=== PATIENT | male | born 1970 | race Caucasian/White ===

== ENCOUNTER 2018-06-10 13:18 | Outpatient (RCR) | payer MEDICARE, SELFPAY ==
[2018-06-10 14:04] VITALS: BP 173/81; PULSE 66; RESP 18; TEMP 36.3; BMI 29.0
--- NOTE | 2018-06-10 17:09 | PCM.WC.HP ---
(1) Chronic ulcer of left foot with fat layer exposed Status: Chronic Current Visit: Yes Code(s): L97.522 - Non-pressure chronic ulcer of other part of left foot with fat layer exposed (2) Small vessel disease Status: Chronic Current Visit: Yes Code(s): I99.9 - Unspecified disorder of circulatory system (3) Other specified peripheral vascular diseases Status: Chronic Current Visit: Yes Code(s): I73.89 - Other specified peripheral vascular diseases (4) Hammer toe of left foot Status: Chronic Current Visit: Yes Code(s): M20.42 - Other hammer toe(s) (acquired), left foot (5) Cellulitis of left foot Status: Resolved Current Visit: Yes Code(s): L03.116 - Cellulitis of left lower limb (6) Tobacco user Status: Chronic Current Visit: Yes Code(s): Z72.0 - Tobacco use (7) Left foot pain Status: Chronic Current Visit: Yes Code(s): M79.672 - Pain in left foot (8) Eschar of toe Status: Chronic Current Visit: Yes Code(s): R23.4 - Changes in skin texture History of Present Illness Date of Service: 06/10/18 Chief Complaint: Left fifth toe wound History of Wound: This 47-year-old male presents the wound healing center and was referred by Dr. Neri at the [facility] for nonhealing left fifth toe ulcer. His primary care physician is Dr. Pham. He relates the wound has been present for approximately 2 months. He reports his dog jumped on his toe and the dog's nail scratched into his toe. He has applied Santyl. He already obtain a noninvasive vascular study and was told it was normal. He is terrible pain that wakes him at night. His pain is mildly softened by dangling the leg. He denies odor or redness. He had previous redness and was treated with oral antibiotics. He does have some claudication type symptoms and some rest paresthesias. He denies current fever, chill, nausea, vomiting, loss of appetite. He continues to smoke and has tried to reduce this activity. He wears a surgical shoe as prescribed by his previous daycare director. She is also here today with the family member or friend who has some of [place] diagnostic data on my chart that is viewable on her phone. She will also help gather this information and a principal in CD form for next week. Past Medical History Past Medical History: Chronic Problems Chronic ulcer of left foot with fat layer exposed (Chronic) Small vessel disease (Chronic) Other specified peripheral vascular diseases (Chronic) Hammer toe of left foot (Chronic) Left foot pain (Chronic) Eschar of toe (Chronic) Tobacco user (Chronic) Obesity (Chronic) Past Medical History: Degenerative disc disease in the cervical area, chronic pain, hypertension, hyperlipidemia, hypothyroidism, vertigo, cellulitis. Surgical history: Sinus surgery. Medications were: Reviewed. Allergies: IVP dye. Family history: Cancer prostate. Social history: , current everyday smoker, uses alcohol and drugs per chart review Surgical History: no surgical history Allergies/Adverse Reactions: Allergies No Known Allergies Allergy (Verified 04/07/17 16:14) Home Medications: Ambulatory Orders Medication Instructions Recorded Meclizine HCl 25 mg PO TID 04/07/17 Oxycodone HCl/Acetaminophen 1 tab PO BID PRN PRN 04/07/17 [Oxycodone-Acetaminophen 10-325] morphine SR tablet [Ms Contin] 15 mg PO Q12H PRN 04/07/17 Smoking Status: Current every day smoker Review of Systems Constitutional: Denies: Chills, Fever, Weakness HEENT: Denies: Nasal Congestion Cardiovascular: Reports: Claudication, Edema. Denies: Chest Pain, Chest Pressure Respiratory: Denies: Shortness of Breath Gastrointestinal: Denies: Diarrhea, Nausea, Vomiting Musculoskeletal: Reports: Foot Pain, Joint Tenderness. Denies: Leg Pain Skin: Reports: Skin Changes, Wounds Neurological: Reports: Incoordination, Tingling - Physical Exam Vital Signs Temp Pulse Resp BP 97.3 F L 66 18 173/81 H 06/10/18 14:04 06/10/18 14:04 06/10/18 14:04 06/10/18 14:04 General: Alert, Oriented x3, Cooperative HEENT: Atraumatic Extremities: No Calf Tenderness - Negative Nikos and Love sign bilateral, Diminished Peripheral Pulses - Nonpalpable PT pulses bilateral. Week palpable DP pulses bilateral. Hair is noted to the legs and not to the forefoot. His toes are dysvascular on the left side and he has a capillary refill time of 4 seconds to the fifth toe, over 1 minute to the fourth toe, less than 3 seconds to the left 1, 2, 3 toes., Edema - Mild left foot, - - There is varus rotation the fifth toe and this abuts the fourth toe Skin: Ulcer/ Wound - No purulence, erythema, streaking, odor, acute infection. No interdigital maceration. The medial left fifth toe has an eschar with scant peripheral fibrous tissue noted with no probe to bone. This is very painful to touch. Wound Measurements and Assessment WC - Nurse 1 - General Ulcer Measurement Start: 06/10/18 14:04 Freq: Status: Active Protocol: Activity Type Activity Date Activity User E-Sign Co-Sign Detail Recorded Client Recorded Date Recorded By Document 06/10/18 14:04 [id number] 06/10/18 14:14 06/10/18 14:04 Wound Center Nurse 1 [Ulcer Assessment] #1 LEFT 5TH TOE -Combined with other wound No -Current Size (cm) - Length 1.9 -Current Size (cm) - Width 1.5 -Current Size (cm) - Depth 0.1 -Total Square Cm 2.85 -Date of Last Picture (Recall this 06/10/18 field) -Photo Taken Yes -Epithelialization None Present -Tunneling No -Undermining/Tunneling No -Circular Undermining No -Exudate Amt Medium (34-66%) -Exudate Type Serosanguineous -Wound Margin Distinct, Outline Attached -Granulation Amt None Present (0 %) -Granulation Quality Pale -Slough/Fibrin Yes -Necrosis Amt None Present (0 %) -Necrotic Tissue Type Eschar -Structure Exposed None/Limited to Skin Breakdown -Texture (Batool-wound Skin Appearance) Assessed -Moisture (Batool-wound Skin Appearance Assessed ) Maceration -Color (Batool-wound Skin Appearance) No Abnormality Assessed -Temperature (Batool-wound Skin No Abnormality Appearance) (Pt Warm) -Tenderness on Palpation (Batool-wound Yes Skin Appearance) -Ulcer Cleansing Rinsed/ Irrigated with Saline -Foul Odor after Cleansing No -Anesthetic Used 4% Lidocaine Solution [Edema Assessment] -Lower Limb Edema Present No -Right Calf (cm) 35 -Right Ankle (cm) 21.4 -Left Calf (cm) 34.4 -Left Ankle (cm) 21.3 [id number] - Nurse 2 - General Ulcer CM Notes Start: 06/10/18 14:04 Freq: Status: Active Protocol: Activity Type Activity Date Activity User E-Sign Co-Sign Detail Recorded Client Recorded Date Recorded By Document 06/10/18 14:36 [id number] 06/10/18 14:47 06/10/18 14:36 Wound Center Nurse 2 [Procedure/Treatment] #1 LEFT 5TH TOE -Time 14:38 -Correct Patient Yes -Correct Side, Site, Position Yes -Correct Procedure Yes -Procedure Performed Yes -Post Debridement Size (cm) - Length 1.9 -Post Debridement Size (cm) - Width 1.5 -Post Debridement Size (cm) - Depth 0.1 -Total Square Cm 2.85 -Wound/Ulcer Outcome Not Healed -Ulcer Cleansing Rinsed/ Irrigated with Saline -Foul Odor after Cleansing No -Bioengineered Tissue No -Topical Lidocaine (%) 5 -Bleeding Controlled with Pressure -Treatment Response Procedure Tolerated Well [See Physician Procedure note for Specifics] Pain Scale: 0-10 Numeric [Pain] -Is Patient Pain Free? Yes Musculoskeletal: No Tenderness to Palpation of Joints or Extremities, Muscle Wasting, - - Active range of motion the toes noted bilateral. 5 out of 5 ankle muscle strength all directions bilateral. The compartments remain soft to palpate bilateral lower extremities. Neurological: Sensory exam intact to light touch and pain Psych/Mental Status: Normal Affect, Appropriate Debridement Note Post-Debridement Measurements/Treatment WC - Nurse 2 - General Ulcer CM Notes Start: 06/10/18 14:04 Freq: Status: Active Protocol: Activity Type Activity Date Activity User E-Sign Co-Sign Detail Recorded Client Recorded Date Recorded By Document 06/10/18 14:36 [id number] 06/10/18 14:47 06/10/18 14:36 Wound Center Nurse 2 #1 LEFT 5TH TOE -Time 14:38 -Correct Patient Yes -Correct Side, Site, Position Yes -Correct Procedure Yes -Procedure Performed Yes -Post Debridement Size (cm) - Length 1.9 -Post Debridement Size (cm) - Width 1.5 -Post Debridement Size (cm) - Depth 0.1 -Total Square Cm 2.85 -Wound/Ulcer Outcome Not Healed -Ulcer Cleansing Rinsed/ Irrigated with Saline -Foul Odor after Cleansing No -Bioengineered Tissue No -Topical Lidocaine (%) 5 -Bleeding Controlled with Pressure -Treatment Response Procedure Tolerated Well Pain Scale: 0-10 Numeric Is Patient Pain Free? Yes Wound debrided: fifth toe Laterality: Left No debridement was completed today - There is concern for ischemic changes Assessment/Plan Active Problems Chronic ulcer of left foot with fat layer exposed (Chronic) Small vessel disease (Chronic) Other specified peripheral vascular diseases (Chronic) Hammer toe of left foot (Chronic) Left foot pain (Chronic) Eschar of toe (Chronic) Tobacco user (Chronic) Assessment: Left fifth toe with arterial etiology. Pain. Small vessel disease: Peripheral vascular disease. Current smoker. Malnutrition suspected. Miri Plan: I reviewed and discussed his case today. Debridement was not performed today because I am concerned of his lack of perfusion to the site. I reviewed his noninvasive vascular studies for my chart in an informal manner and it appears that his right ankle-brachial index is 1.19 and left is 1.23. The right digital pressures are 0.81 and on the left at 0.81. I will formally request the paper report from the [facility]. I also recommend a vascular surgery referral with Dr. Bravo to see if any intervention is possible. Smoking cessation was encouraged and he understands he is at risk for limb loss and nonhealing. His foot appears to be dysvascular and there is significant delay of capillary fill time. I recommend he dangle his leg to improve perfusion which does provide some relief. He can also take [id number] Tylenol for needed for pain. He was reassured no signs of infection are noted. His previous culture results are noted and in Dr. Neri's note that was faxed. A full chart review was performed. His foot x-ray with copy of the CD images as well his recent labs were requested from the [facility]. His labs from 05/08/2018 were reviewed with a glucose of 79, creatinine of 1.09, white blood cell count of 10.6 hemoglobin and hematocrit 17.552.8, and platelet of 156. The report from his x-ray were also reviewed from 04/22/2018 the left foot which did not demonstrate acute fracture dislocation. There was mild edema noted. I recommend he change his dressing daily with Santyl and apply a gauze toe spacer to the proximal interdigital area to take pressure off the site. To continue surgical shoe use. A prescription for Hermelindo nutritional supplementation was also provided he was advised on proper use to optimize healing. I answered all his questions. He was advised to return to clinic in 1 week or call sooner if he has any questions.
== END 2018-06-19 23:59 ==
LOC: WC 13:18
PROVIDERS: Family Provider Internal Medicine; PCP Internal Medicine; Visit Provider Podiatrist
DX: I73.89 Other specified peripheral vascular diseases (principal); M20.40 Other hammer toe(s) (acquired), unspecified foot; L97.522 Non-pressure chronic ulcer of other part of left foot with fat layer exposed; M79.672 Pain in left foot; I10 Essential (primary) hypertension; E78.5 Hyperlipidemia, unspecified; F17.200 Nicotine dependence, unspecified, uncomplicated; Z79.899 Other long term (current) drug therapy
CPT/HCPCS: 97602; 99203; 99213; G0463

== ENCOUNTER 2018-07-08 08:06 | Outpatient (RCR) | payer MEDICAID, MEDICARE, SELFPAY ==
[2018-06-20 01:47] VITALS: BP 173/81; PULSE 66; RESP 18; TEMP 36.3
[2018-07-08 10:14] VITALS: BP 162/88; PULSE 76; RESP 18; TEMP 36.3
--- NOTE | 2018-07-08 11:47 | PCM.WC.PN ---
(1) Chronic ulcer of left foot with fat layer exposed Status: Chronic Current Visit: Yes Code(s): L97.522 - Non-pressure chronic ulcer of other part of left foot with fat layer exposed (2) Small vessel disease Status: Chronic Current Visit: Yes Code(s): I99.9 - Unspecified disorder of circulatory system (3) Other specified peripheral vascular diseases Status: Chronic Current Visit: Yes Code(s): I73.89 - Other specified peripheral vascular diseases (4) Hammer toe of left foot Status: Chronic Current Visit: Yes Code(s): M20.42 - Other hammer toe(s) (acquired), left foot (5) Cellulitis of left foot Status: Resolved Current Visit: Yes Code(s): L03.116 - Cellulitis of left lower limb (6) Tobacco user Status: Chronic Current Visit: Yes Code(s): Z72.0 - Tobacco use Type of Wound Date of Service: 07/08/18 Chief Complaint: Left fifth toe wound History of Wound: This 47-year-old male returns to clinic for follow-up of small vessel disease with left fifth toe ulcer. He also has a new ulcer to his left fourth toe. He has applied Santyl and his scab is now gone. He already obtain a noninvasive vascular study and was told it was normal. He is terrible pain that wakes him at night. He tried to dangle relates this does not help. He did not set up a follow-up appointment with vascular surgery as advised. He complains of terrible pain is trying to get into pain management physician by the name of Dr. Martinez. He is not able to tolerate a toe spacer to keep pressure off the ulcer site and he does wear a surgical shoe as advised. He continues to smoke up to 6 cigarettes a day. He is very anxious and talkative. Progress of Wound: Stable - Physical Exam Vital Signs Temp Pulse Resp BP 97.3 F L 76 18 162/88 H 07/08/18 10:14 07/08/18 10:14 07/08/18 10:14 07/08/18 10:14 General: Alert, Oriented x3, Cooperative Extremities: No cyanosis, Capillary Refill Less than 3 Seconds, No Calf Tenderness - negative Nikos and Love left, Diminished Peripheral Pulses, Edema - Mild fifth toe left Skin: Ulcer/ Wound - The wound bed is now fibrous and there is no longer any eschar noted to the medial aspect of the left fifth toe. There is no probe to deep structures. This toe has a cyanotic apparent and has a delayed capillary refill time of less than 6 seconds. The adjacent fourth toe has a delayed capillary refill time of less than 4 seconds and is not as mottled in appearance. There is a new skin discontinuity to the lateral left fourth toe that has a granular and fibrous base. The peripheral skin is hairless and atrophic. There is no purulence streaking erythema or odor Wound Measurements and Assessment WC - Nurse 1 - General Ulcer Measurement Start: 07/08/18 10:09 Freq: Status: Active Protocol: Activity Type Activity Date Activity User E-Sign Co-Sign Detail Recorded Client Recorded Date Recorded By Document 07/08/18 10:14 [email or web address] [id number] 07/08/18 10:33 RB 07/08/18 10:14 Wound Center Nurse 1 [Ulcer Assessment] 2.L 4th toe -Combined with other wound No -Current Size (cm) - Length 1.1 -Current Size (cm) - Width 1.1 -Current Size (cm) - Depth 0.1 -Total Square Cm 1.21 -Photo Taken No -Tunneling No -Undermining/Tunneling No -Circular Undermining No -Classification - Thickness Full Thickness without Exposed Support Structure -Exudate Amt Small (1-33%) -Exudate Type Serosanguineous -Wound Margin Distinct, Outline Attached -Granulation Amt Medium (34-66%) -Granulation Quality [place] -Slough/Fibrin Yes -Necrosis Amt Medium (34-66%) -Necrotic Tissue Type Adherent Slough -Structure Exposed N/A -Texture (Batool-wound Skin Appearance) Assessed -Moisture (Batool-wound Skin Appearance Assessed ) -Color (Batool-wound Skin Appearance) Assessed -Temperature (Batool-wound Skin No Abnormality Appearance) (Pt Warm) -Tenderness on Palpation (Batool-wound No Skin Appearance) -Ulcer Cleansing Rinsed/ Irrigated with Saline -Foul Odor after Cleansing No -Anesthetic Used 4% Lidocaine Solution #1 LEFT 5TH TOE -Combined with other wound No -Current Size (cm) - Length 0.6 -Current Size (cm) - Width 0.6 -Current Size (cm) - Depth 0.1 -Total Square Cm 0.36 -Photo Taken No -Tunneling No -Undermining/Tunneling No -Circular Undermining No -Classification - Thickness Full Thickness without Exposed Support Structure -Exudate Amt Small (1-33%) -Exudate Type Serosanguineous -Wound Margin Distinct, Outline Attached -Granulation Amt Medium (34-66%) -Granulation Quality [place] Red -Slough/Fibrin Yes -Necrosis Amt Medium (34-66%) -Necrotic Tissue Type Adherent Slough -Structure Exposed N/A -Texture (Batool-wound Skin Appearance) Assessed -Moisture (Batool-wound Skin Appearance Assessed ) -Color (Batool-wound Skin Appearance) Assessed -Temperature (Batool-wound Skin No Abnormality Appearance) (Pt Warm) -Tenderness on Palpation (Batool-wound No Skin Appearance) -Ulcer Cleansing Rinsed/ Irrigated with Saline -Foul Odor after Cleansing No -Anesthetic Used 4% Lidocaine Solution [Edema Assessment] -Lower Limb Edema Present Yes -Left Calf (cm) 33.5 -Left Ankle (cm) 21.4 - Nurse 2 - General Ulcer CM Notes Start: 07/08/18 10:09 Freq: Status: Active Protocol: Activity Type Activity Date Activity User E-Sign Co-Sign Detail Recorded Client Recorded Date Recorded By Document 07/08/18 10:52 [id number] 07/08/18 10:53 07/08/18 10:52 Wound Center Nurse 2 [Procedure/Treatment] 2.L 4th toe -Correct Patient No -Correct Side, Site, Position No -Correct Procedure No -Procedure Performed No #1 LEFT 5TH TOE -Correct Patient No -Correct Side, Site, Position No -Correct Procedure No -Procedure Performed No [See Physician Procedure note for Specifics] Pain Scale: 0-10 Numeric [Pain] -Is Patient Pain Free? Yes Musculoskeletal: No Tenderness to Palpation of Joints or Extremities, Muscle Wasting, - - Varus rotation fifth toe abuts fourth toe Neurological: Sensory exam intact to light touch and pain Psych/Mental Status: Normal Affect, Agitated, Anxious Debridement Note Post-Debridement Measurements/Treatment - Nurse 2 - General Ulcer CM Notes Start: 07/08/18 10:09 Freq: Status: Active Protocol: Activity Type Activity Date Activity User E-Sign Co-Sign Detail Recorded Client Recorded Date Recorded By Document 07/08/18 10:52 [id number] 07/08/18 10:53 07/08/18 10:52 Wound Center Nurse 2 2.L 4th toe -Correct Patient No -Correct Side, Site, Position No -Correct Procedure No -Procedure Performed No #1 LEFT 5TH TOE -Correct Patient No -Correct Side, Site, Position No -Correct Procedure No -Procedure Performed No Pain Scale: 0-10 Numeric Is Patient Pain Free? Yes No debridement was completed today - Refused due to pain Assessment/Plan Active Problems Chronic ulcer of left foot with fat layer exposed (Chronic) Small vessel disease (Chronic) Other specified peripheral vascular diseases (Chronic) Hammer toe of left foot (Chronic) Tobacco user (Chronic) Assessment: Left fifth toe with arterial etiology. Pain. Small vessel disease: Peripheral vascular disease. Current smoker. Malnutrition suspected. Jayshreeertoes Plan: I reviewed and discussed his case today. Debridement was not performed today because I am concerned of his lack of perfusion to the site and he refused due to pain. I reviewed his noninvasive vascular studies for my chart in an informal manner and it appears that his right ankle-brachial index is 1.19 and left is 1.23. The right digital pressures are 0.81 and on the left at 0.81. His formal report was reviewed. I also recommend a vascular surgery referral with Dr. Bravo to see if any intervention is possible. He did not set this up yet and I urged him to do so; this is his primary recommendation at this time. Smoking cessation was encouraged and he understands he is at risk for limb loss and nonhealing. His foot appears to be dysvascular and there is significant delay of capillary fill time. His status is worsening and he has a new ulcer to the adjacent fourth toe. I recommend he dangle his leg to improve perfusion which does provide some relief. He can also take [id number] Tylenol for needed for pain. A prescription for nifedipine topical compound 8% was provided and he was advised to apply this to the periwound and fifth toe site up to 3 times daily. He understands this will help with vasodilation of the small vessels and presumably decrease in pain. He is aware if he applies too much this may interfere with his cardiac status. He was reassured no signs of infection are noted. His previous culture results are noted and in Dr. Neri's note that was faxed. A full chart review was performed. His foot x-ray with copy of the CD images as well his recent labs were requested from the [facility]. His labs from 05/08/2018 were reviewed with a glucose of 79, creatinine of 1.09, white blood cell count of 10.6 hemoglobin and hematocrit 17.552.8, and platelet of 156. The report from his x-ray were also reviewed from 04/22/2018 the left foot which did not demonstrate acute fracture dislocation. There was mild edema noted. I recommend he change his dressing daily with Santyl and apply a gauze toe spacer to the proximal interdigital area to take pressure off the site. To continue surgical shoe use. A prescription for Hermelindo nutritional supplementation was also provided he was advised on proper use to optimize healing. To continue nutritional supplementation. I answered all his questions. He was advised to return to clinic in 1 week or call sooner if he has any questions.
== END 2018-07-19 23:59 ==
LOC: WC 08:06
PROVIDERS: Family Provider Internal Medicine; PCP Internal Medicine; Visit Provider Podiatrist
DX: I73.89 Other specified peripheral vascular diseases (principal); L97.522 Non-pressure chronic ulcer of other part of left foot with fat layer exposed; M20.42 Other hammer toe(s) (acquired), left foot; F17.210 Nicotine dependence, cigarettes, uncomplicated